=== PATIENT | male | born 1990 | race African-American/Black ===

== ENCOUNTER → 2023-10-30 11:03 | Outpatient (CLI) | payer OTHER, SELFPAY ==
--- NOTE | 2023-10-30 11:06 | DI.MRI.S_ITS ---
PROCEDURE: MR HEAD/BRAIN WO/W CON INDICATIONS: Unspecified convulsions TECHNIQUE: Noncontrast axial T1 spin echo, axial T2 fast spin echo, sagittal and axial FLAIR, axial gradient echo, axial diffusion and ADC, coronal thin-slice T2 FSE through the brain. Optional contrast, followed by axial and coronal and sagittal 3D VIBE or T1 spin echo with fat saturation sequences through the brain. COMPARISON: None. FINDINGS: Image quality: Excellent. CSF spaces: Ventricles are normal in size and shape. Basal cisterns are patent. No extra-axial fluid collections. Brain: No intracranial bleeds or mass effects. No abnormal intracranial enhancement. Purcell-white matter interface appears intact. Diffusion weighted images demonstrate no acute ischemic insults. Brainstem appear normal. Normal intravascular flow voids are present. The hippocampal regions appear normal and symmetric in morphology. Skull and face: Calvarial marrow signal is normal. Orbits appear normal. Sinuses: Sinuses and mastoids are clear. IMPRESSION: No cause for patient's symptoms is identified. The hippocampal regions appear normal and symmetric in morphology. Normal appearance of the brain. Dictated by: Bruce Antony M.D. on 10/30/2023 at 14:27 Approved by: Bruce Antony M.D. on 10/30/2023 at 14:30
== END ==
DX: R56.9 Unspecified convulsions (principal)
CPT/HCPCS: 70553; A9579